=== PATIENT | female | born 1930 | race Caucasian/White ===

== ENCOUNTER 2019-09-14 13:22 | Observation (INO) | payer OTHER ==
--- OUTSIDE RECORDS SUMMARY | 2019-09-14 13:23 | XMS REPORT ---
:1930 [facility] Address [address] [place] [address] [place] [id number] Care Team Providers Name Role Phone Unavailable Unavailable Unavailable Problems This patient has no known problems. Allergies, Adverse Reactions, Alerts This patient has no known allergies or adverse reactions. Medications This patient has no known medications.
--- OUTSIDE RECORDS SUMMARY | 2019-09-14 13:24 | XMS REPORT | Summary of Care ---
:1930 Author Organization [address] [address] Care Team Providers Name Role Phone Wilmer Wilkinson Primary Care Provider Reason for Visit Reason Comments Refill Request Encounter Details Date Type Department Care Team Description 05/30/2019 Refill [facility] Ananth Michel MD Refill Request Neurology-[address] [place] [id number] [address] [place] [address] [phone] Allergies Not on Filedocumented as of this encounter (statuses as of 05/31/2019) Medications Medication Sig Dispensed Refills Start Date End Date Status RIVASTIGMINE TARTRATE TAKE 1 CAPSULE BY 60 capsule 3 03/10/2019 Active 4.5 mg capsule MOUTH EVERY MORNING AND EVENING. RIVASTIGMINE TARTRATE TAKE 1 CAPSULE BY 60 capsule 3 05/31/2019 Active 4.5 mg capsule MOUTH EVERY MORNING AND EVENING. documented as of this encounter (statuses as of 05/31/2019) Active Problems Not on filedocumented as of this encounter (statuses as of 05/31/2019) Social History Tobacco Use Types Packs/Day Years Used Date Former Smoker Smokeless Tobacco: Never Used Alcohol Use Drinks/Week oz/Week Comments No Sex Assigned at Date Recorded Not on file Job Start Date Occupation Industry Not on file Not on file Not on file Travel History Travel Start Travel End No recent travel history available. documented as of this encounter Last Filed Vital Signs Not on filedocumented in this encounter Plan of Treatment Health Maintenance Due Date Last Done Comments DTaP,Tdap,and Td Vaccines (1 - Tdap) 1950 Zoster Recombinant Vaccine (SHINGRIX) (1 of 2) 1981 Medicare Wellness Visit 01/07/1996 Osteoporosis Screening 01/07/1996 PNEUMOCOCCAL VACCINES 65+ (1 of 2 - PCV13) 01/07/1996 INFLUENZA VACCINE (#1) 2019 documented as of this encounter Results Not on filedocumented in this encounter Insurance Payer Benefit Plan Subscriber ID Effective Phone Address Type / Group Dates AETNA - AETNA [id number] 2018-Prese [address] Medicare Adv [place]NA[place]ED [place]ICARE [place] nt [id number] [place] [address] HU[employer] - HUMANA [id number] 2018-Prese Medicare Adv MANAGED MEDICARE ERS nt PPO MEDICARE documented as of this encounter
--- NOTE | 2019-09-14 14:18 | RAD REPORT ---
EXAM DESCRIPTION: CT - Head Brain Wo Cont - 09/14/2019 2:03 pm CLINICAL HISTORY: Changed mental status;Confused Headache, drowsiness COMPARISON: CT HEAD BRAIN WWO CONTRAST dated 04/30/2012 TECHNIQUE: All CT scans are performed using dose optimization technique as appropriate and may inclu de automated exposure control or mA/KV adjustment according to patient size. FINDINGS: No intracranial hemorrhage, hydrocephalus or extra-axial fluid collection.Moderate general ized brain atrophy is present with advanced periventricular and deep white matter chronic microvascul ar ischemic changes.No areas of brain edema or evidence of midline shift. The paranasal sinuses and mastoids are clear. The calvarium is intact. Right vertebral artery is calc ified. IMPRESSION: No acute intracranial abnormality.
--- NOTE | 2019-09-14 14:40 | RAD REPORT ---
EXAM DESCRIPTION: RAD - Chest Single View - 09/14/2019 2:23 pm CLINICAL HISTORY: AMS Chest pain. COMPARISON: CHEST PA AND LAT 2 VIEW dated 09/13/2015; CHEST PA AND LAT 2 VIEW dated 04/29/2012; CHEST PA AND LAT 2 VIEW dated 02/23/2009; CHEST PA AND LAT 2 VIEW dated 11/24/2006 FINDINGS: Portable technique limits examination quality. The lungs are grossly clear. The heart is normal in size. No displaced fractures. IMPRESSION: No acute intrathoracic process suspected.
[2019-09-14 15:21] LABS: Absolute Lymphocytes (CBC) 1.6 K/uL (0.7-4.9); Basophils % 1.1 % (0-1.3); Lymphocytes % 16.6 % (15.3-44.8); RBC Red Blood Cell Count 4.53 M/uL (3.86-4.86)
--- NOTE | 2019-09-14 16:19 | EKG ---
Test Date: 2019-09-14 Test Time: 13:34:21 Banana Room Cutter: KHADAR MEASUREMENT RESULTS: Intervals: Rate: 75 OH: 174 QRSD: 80 QT: 406 QTc: 453 [place]: P: 64 OH: 174 QRS: -15 T: 92 INTERPRETIVE STATEMENTS: Normal sinus rhythm Minimal voltage criteria for LVH, may be normal variant Nonspecific ST and T wave abnormality Abnormal ECG Compared to ECG 07/31/1998 06:07:00 Left ventricular hypertrophy now present ST (T wave) deviation now present T-wave abnormality no longer present Electronically Signed On 09-14-19 16:19:06 INFORMATION SYSTEMS MANAGER by Patel Cox
[2019-09-14 16:23] LABS: Protime INR 1.2
[2019-09-14 18:00] LABS: ALT/SGPT 24 U/L (12-78); AST/SGOT 22 U/L (15-37); Albumin 3.7 g/dL (3.4-5.0); Alkaline Phosphatase 72 U/L (45-117); BUN Blood Urea Nitrogen 21 mg/dL (7-18); Bicarbonate 24 mmol/L (21-32); Bilirubin Direct < 0.1 mg/dL (0-0.2); Bilirubin Total 0.3 mg/dL (0.2-1.0); Glucose Level 105 mg/dL (74-106); Magnesium 1.9 mg/dL (1.8-2.4); NT PRO-BNP 401 pg/mL (<450); Protein, Total 7.4 g/dL (6.4-8.2); Sodium Level 128 mmol/L (136-145); Troponin (Emerg Dept Use Only) < 0.02 ng/mL (0.0-0.045)
[2019-09-14] MEDS ORDERED: NA CHLORIDE 0.9% 500 ML ONE (18:23)
[2019-09-14] MEDS ORDERED: ONDANSETRON 4 MG/2 ML VIAL IV PRN (18:29)
[2019-09-14] MEDS ORDERED: ACETAMINOPHEN 500 MG TAB PO PRN (18:29)
--- NOTE | 2019-09-14 18:29 | EDPHYS ---
Physician Documentation [facility] Name: Alessandra Mendes Age: 89 yrs Sex: Female : 1930 Arrival Date: 09/14/2019 Time: 13:29 Bed 7 Private MD: ED Physician Jonathan Caputo HPI: 09/14 13:58 This 89 yrs old Female presents to ER via EMS with complaints of Altered kdr Mental Status. 13:58 The patient presents with decreased responsiveness. Onset: The symptoms/episode kdr began/occurred suddenly, just prior to arrival. Possible causes: CVA or TIA, low blood sugar, seizure. Associated signs and symptoms: The patient has no apparent associated signs or symptoms. Current symptoms: In the emergency department the patient's symptoms have resolved, the patient is alert and fully oriented, has normal speech, has normal responsiveness, has no confusion. Patient's baseline: Neuro: alert and fully oriented, Motor: no deficits, Ambulation: walks without assistance, Speech: normal for age, The patient has a previous history of HTN. The patient has not experienced similar symptoms in the past. The patient has not recently seen a physician. Historical: - Allergies: 13:34 PENICILLINS; sg - Home Meds: 19:46 Unable to obtain [Active]; lp1 - PMHx: 13:34 Hypertension; sg - PSHx: 13:34 Appendectomy; Tonsillectomy; Tubal ligation; sg - Immunization history:: Adult Immunizations unknown. - Social history:: Smoking status: Patient/guardian denies using tobacco. - Ebola Screening: : Patient negative for fever greater than or equal to 101.5 degrees Fahrenheit, and additional compatible Ebola Virus Disease symptoms Patient denies exposure to infectious person Patient denies travel to an Ebola-affected area in the 21 days before illness onset No symptoms or risks identified at this time. ROS: 13:58 Constitutional: Negative for fever, chills, and weight loss, Eyes: Negative for injury, kdr pain, redness, and discharge, ENT: Negative for injury, pain, and discharge, Neck: Negative for injury, pain, and swelling, Cardiovascular: Negative for chest pain, palpitations, and edema, Respiratory: Negative for shortness of breath, cough, wheezing, and pleuritic chest pain, Abdomen/GI: Negative for abdominal pain, nausea, vomiting, diarrhea, and constipation, Back: Negative for injury and pain, : Negative for injury, bleeding, discharge, and swelling, MS/Extremity: Negative for injury and deformity, Skin: Negative for injury, rash, and discoloration, Psych: Negative for depression, anxiety, suicide ideation, homicidal ideation, and hallucinations, Allergy/Immunology: Negative for hives, rash, and allergies, Endocrine: Negative for neck swelling, polydipsia, polyuria, polyphagia, and marked weight changes, Hematologic/Lymphatic: Negative for swollen nodes, abnormal bleeding, and unusual bruising. 13:58 Neuro: Positive for altered mental status, The patient had a staring episode and then vomited - she does not remember the staring episode but she does remember the vomiting. According to the family present, she has had numerous brief, limited, paroxysmal episodes of single vomiting but never associated with the staring and unrespoiosiveness. She feels at baseline presently.. Exam: 13:58 Constitutional: This is a well developed, well nourished patient who is awake, alert, kdr and in no acute distress. Head/Face: Normocephalic, atraumatic. Eyes: Pupils equal round and reactive to light, extra-ocular motions intact. Lids and lashes normal. Conjunctiva and sclera are non-icteric and not injected. Cornea within normal limits. Periorbital areas with no swelling, redness, or edema. Neck: Trachea midline, no thyromegaly or masses palpated, and no cervical lymphadenopathy. Supple, full range of motion without nuchal rigidity, or vertebral point tenderness. No Meningismus. Chest/axilla: Normal chest wall appearance and motion. Nontender with no deformity. No lesions are appreciated. Cardiovascular: Regular rate and rhythm with a normal S1 and S2. No gallops, murmurs, or rubs. Normal PMI, no JVD. No pulse deficits. Respiratory: Lungs have equal breath sounds bilaterally, clear to auscultation and percussion. No rales, rhonchi or wheezes noted. No increased work of breathing, no retractions or nasal flaring. Abdomen/GI: Soft, non-tender, with normal bowel sounds. No distension or tympany. No guarding or rebound. No evidence of tenderness throughout. Back: No spinal tenderness. No costovertebral tenderness. Full range of motion. Skin: Warm, dry with normal turgor. Normal color with no rashes, no lesions, and no evidence of cellulitis. MS/ Extremity: Pulses equal, no cyanosis. Neurovascular intact. Full, normal range of motion. Neuro: Awake and alert, GCS 15, oriented to person, place, time, and situation. Cranial nerves II-XII grossly intact. Motor strength 5/5 in all extremities. Sensory grossly intact. Cerebellar exam normal. Normal gait. Psych: Awake, alert, with orientation to person, place and time. Behavior, mood, and affect are within normal limits. Vital Signs: 13:32 BP 154 / 68; Pulse 79; Resp 18; Temp 97.6; Pulse Ox 100% on R/A; Weight 74.84 kg; sg 15:58 BP 133 / 82; Pulse 69; Resp 18; Pulse Ox 97% ; sv 16:46 BP 142 / 63; Pulse 67; Resp 17; Pulse Ox 97% ; sv 17:56 BP 137 / 61; Pulse 66; Resp 17; Pulse Ox 96% ; sv 18:50 BP 132 / 60; Pulse 67; Resp 17; Temp 97.6; Pulse Ox 98% on R/A; sg 19:30 BP 136 / 56; Pulse 73; Resp 17; Pulse Ox 97% on R/A; Pain 0/10; lp1 20:28 BP 157 / 63; Pulse 71; Resp 15; Pulse Ox 96% on R/A; lp1 20:42 BP 137 / 58; Pulse 67; Resp 17; Pulse Ox 97% on R/A; Pain 0/10; lp1 NIH Stroke Scale Scores: 13:30 NIHSS Score: 0 sg 16:00 NIHSS Score: 0 kdr MDM: 13:58 Data reviewed: vital signs, nurses notes, lab test result(s), radiologic studies. kdr 18:27 Patient medically screened. kdr 09/14 13:53 Order name: Basic Metabolic Panel; Complete Time: 18:17 kdr 09/14 13:53 Order name: CBC with Diff; Complete Time: 16:34 kdr 09/14 13:53 Order name: LFT's; Complete Time: 18:17 kdr 09/14 13:53 Order name: Magnesium; Complete Time: 18:17 kdr 09/14 13:53 Order name: NT PRO-BNP; Complete Time: 18:17 kdr 09/14 13:53 Order name: PT-INR; Complete Time: 16:34 kdr 09/14 13:53 Order name: CT Head Brain wo Cont; Complete Time: 16:34 kdr 09/14 13:53 Order name: Troponin (emerg Dept Use Only); Complete Time: 18:17 kdr 09/14 13:53 Order name: XRAY Chest (1 view); Complete Time: 16:34 kdr 09/14 14:39 Order name: Glucose, Ancillary Testing; Complete Time: 16:34 EDMS 09/14 18:35 Order name: Basic Metabolic Panel EDMS 09/14 18:35 Order name: Basic Metabolic Panel EDMS 09/14 18:35 Order name: CBC with Automated Diff EDMS 09/14 18:35 Order name: CBC with Automated Diff EDMS 09/14 13:53 Order name: EKG; Complete Time: 13:54 kdr 09/14 13:53 Order name: Cardiac monitoring; Complete Time: 13:57 kdr 09/14 13:53 Order name: EKG - Nurse/Tech; Complete Time: 13:57 kdr 09/14 13:53 Order name: IV Saline Lock; Complete Time: 13:57 kdr 09/14 13:53 Order name: Labs collected and sent; Complete Time: 13:57 kdr 09/14 13:53 Order name: O2 Per Protocol; Complete Time: 13:57 kdr 09/14 13:53 Order name: O2 Sat Monitoring; Complete Time: 13:57 kdr 09/14 14:54 Order name: Labs - recollect needed; Complete Time: 16:15 09/14 16:42 Order name: Labs - recollect needed; Complete Time: 18:02 09/14 18:35 Order name: Regular EDMS Administered Medications: 18:44 Drug: NS 0.9% 1000 ml Route: IV; Rate: 75 ml/hr; Site: left hand; sg 19:47 Follow up: IV Status: Infusion continued upon admission lp1 Disposition: 09/14/19 18:27 Hospitalization ordered by Wilmer Wilkinson for Observation. Preliminary diagnosis are Syncope and collapse, Vomiting, Hypo-osmolality and hyponatremia. - Bed requested for Telemetry/MedSurg (observation). - Status is Observation. lp1 - Condition is Fair. - Problem is new. - Symptoms are resolved. UTI on Admission? No NIH Stroke Scale - NIH Stroke Score Date: 09/14/2019 Time: 13:30 Total Score = 0 1a. Level of Consciousness (LOC) - 0(Alert) 1b. Level of Consciousness (LOC) (Year \T\ Age) - 0(Both) 1c. LOC Commands (Open \T\ Closes Eyes/Industrial Maintenance Manager) - 0(Both) 2. Best Gaze (Lateral Gaze Paresis) - 0(Normal) 3. Visual Field Loss - 0(No visual loss) 4. Facial Palsy - 0(Normal) 5a. Left Arm: Motor (10-second hold) - 0(No drift) 5b. Right Arm: Motor (10-second hold) - 0(No drift) 6a. Left Leg: Motor (5-second hold - always test supine) - 0(No drift) 6b. Right Leg: Motor (5-second hold - always test supine) - 0(No drift) 7. Limb Ataxia (finger/nose \T\ heel/bravo - test with eyes open) - 0(Absent) 8. Sensory Loss (pinprick arms/legs/face) - 0(Normal) 9. Best Language: Aphasia (description/naming/reading) - 0(No aphasia) 10. Dysarthria (speech clarity - read or repeat words) - 0(Normal) 11. Extinction and Inattention (visual/tactile/auditory/spatial/personal) - 0(No abnormality) Initials: NIH Stroke Scale - NIH Stroke Score Date: 09/14/2019 Time: 16:00 Total Score = 0 1a. Level of Consciousness (LOC) - 0(Alert) 1b. Level of Consciousness (LOC) (Year \T\ Age) - 0(Both) 1c. LOC Commands (Open \T\ Closes Eyes/Industrial Maintenance Manager) - 0(Both) 2. Best Gaze (Lateral Gaze Paresis) - 0(Normal) 3. Visual Field Loss - 0(No visual loss) 4. Facial Palsy - 0(Normal) 5a. Left Arm: Motor (10-second hold) - 0(No drift) 5b. Right Arm: Motor (10-second hold) - 0(No drift) 6a. Left Leg: Motor (5-second hold - always test supine) - 0(No drift) 6b. Right Leg: Motor (5-second hold - always test supine) - 0(No drift) 7. Limb Ataxia (finger/nose \T\ heel/bravo - test with eyes open) - 0(Absent) 8. Sensory Loss (pinprick arms/legs/face) - 0(Normal) 9. Best Language: Aphasia (description/naming/reading) - 0(No aphasia) 10. Dysarthria (speech clarity - read or repeat words) - 0(Normal) 11. Extinction and Inattention (visual/tactile/auditory/spatial/personal) - 0(No abnormality) Initials: kdr Signatures: Dispatcher [employer] EDMS Nell Hernandez Steven, RN RN sg Jonathan Caputo MD MD [facility] Monica Gupta RN RN lp1 Ana Luisa Woodard ar5 Corrections: (The following items were deleted from the chart) 20:21 18:27 Hospitalization Ordered by Wilmer Wilkinson MD for Observation. Preliminary ar5 diagnosis is Syncope and collapse; Vomiting; Hypo-osmolality and hyponatremia. Bed requested for Telemetry/MedSurg (observation). Status is Observation. Condition is Fair. Problem is new. Symptoms are resolved. UTI on Admission? No. kdr 21:04 20:21 09/14/2019 18:27 Hospitalization Ordered by Wilmer Wilkinson MD for lp1 Observation. Preliminary diagnosis is Syncope and collapse; Vomiting; Hypo-osmolality and hyponatremia. Bed requested for Telemetry/MedSurg (observation). Status is Observation. Condition is Fair. Problem is new. Symptoms are resolved. UTI on Admission? No. ar5
--- NOTE | 2019-09-14 18:29 | ER ---
Nurse's Notes [facility] Name: Alessandra Mendes Age: 89 yrs Sex: Female : 1930 Arrival Date: 09/14/2019 Time: 13:29 Bed 7 Private MD: Diagnosis: Syncope and collapse;Vomiting;Hypo-osmolality and hyponatremia Presentation: 09/14 13:29 Presenting complaint: EMS states: pt was at hair appointment when she had an episode of sg unresponsiveness with eyes open lasting approximately 1-2 mins, pt had incontinence of urine per EMS, FSBG "normal", vital signs "normal" per [facility], staff at [facility] report episode of vomiting x1 once the pt returned to baseline onset 1 hr [employer]. Transition of care: patient was not received from another setting of care. Onset of symptoms was September 14, 2019. Risk Assessment: Do you want to hurt yourself or someone else? Patient reports no desire to harm self or others. Initial Sepsis Screen: Does the patient meet any 2 criteria? No. Patient's initial sepsis screen is negative. Does the patient have a suspected source of infection? No. Patient's initial sepsis screen is negative. Care prior to arrival: missed IV attempts x2. 13:29 Method Of Arrival: EMS: [facility] 13:29 Acuity: GLEN 2 sg 13:35 Note notified of EMS report, pt is now at a baseline level per deputy court at sg bedside, a code stroke has not been activated at this time. Historical: - Allergies: 13:34 PENICILLINS; sg - Home Meds: 19:46 Unable to obtain [Active]; lp1 - PMHx: 13:34 Hypertension; sg - PSHx: 13:34 Appendectomy; Tonsillectomy; Tubal ligation; sg - Immunization history:: Adult Immunizations unknown. - Social history:: Smoking status: Patient/guardian denies using tobacco. - Ebola Screening: : Patient negative for fever greater than or equal to 101.5 degrees Fahrenheit, and additional compatible Ebola Virus Disease symptoms Patient denies exposure to infectious person Patient denies travel to an Ebola-affected area in the 21 days before illness onset No symptoms or risks identified at this time. Screenin:30 Abuse screen: Denies threats or abuse. Denies injuries from another. Nutritional sg screening: No deficits noted. Tuberculosis screening: No symptoms or risk factors identified. Never had TB. VAN Screening: Arm Drift: Patient shows no arm weakness. Patient is VAN negative. Visual Disturbance: No visual disturbance noted. Aphasia: No aphasia noted. Neglect: No neglect noted. The patient has not been NPO before screening. The patient is alert, able to follow commands. The patient does not exhibit slurred or garbled speech The patient is not exhibiting difficulty speaking. The patient does not exhibit difficulty understanding words. The patient is able to swallow own secretions with no drooling or need for suction. Patient tolerated one teaspoon of water. No drooling, immediate coughing, gurgling, or clearing of the throat was noted. The patient tolerated 90mL of water. No drooling, immediate coughing, gurgling, or clearing of the throat was noted. The patient passed the bedside swallow screening. Oral medications may be given as ordered. Contact Physician for further diet orders. Fall Risk None identified. Assessment: 13:29 General: Appears in no apparent distress. well groomed, well developed, well nourished, sg Behavior is calm, cooperative, appropriate for age. Neuro: Level of Consciousness is awake, alert, obeys commands, Oriented to person, place, time, situation, [place] are equal bilaterally Moves all extremities. Speech is normal, Facial symmetry appears normal, Pupils are constricted. Cardiovascular: Heart tones S1 S2 present Capillary refill is brisk in bilateral fingers Patient's skin is warm and dry. Chest pain is denied. Respiratory: Airway is patent Respiratory effort is even, unlabored, Respiratory pattern is regular, symmetrical, Denies cough, shortness of breath labored breathing. GI: Abdomen is flat, non-distended. : No signs and/or symptoms were reported regarding the genitourinary system. EENT: No signs and/or symptoms were reported regarding the EENT system. Derm: Skin is pink, warm \\T\\ dry. Musculoskeletal: Circulation, motion, and sensation intact. Range of motion: intact in all extremities. 13:42 Reassessment: Patient appears in no apparent distress at this time. at bedside evaluating pt at this time. 14:12 Reassessment: pt returned from CT at this time. 14:16 Reassessment: xray at bedside at this time. sg 15:45 Reassessment: Patient appears in no apparent distress at this time. Patient and/or sg family updated on plan of care and expected duration. Pain level reassessed. Patient is alert, oriented x 3, equal unlabored respirations, skin warm/dry/pink. Patient denies pain at this time. Patient states feeling better. 17:00 Reassessment: Patient appears in no apparent distress at this time. Patient and/or sg family updated on plan of care and expected duration. Pain level reassessed. pt transport Kenji reports needing to leave to go to home [phone]. 18:50 Reassessment: Kenji contacted, updated on the POC and the need for admission, pt family sg stated understanding. 19:15 Reassessment: Patient appears in no apparent distress at this time. Neuro: Level of lp1 Consciousness is awake, alert, obeys commands, Oriented to person, place. Cardiovascular: Patient's skin is warm and dry. Respiratory: Respiratory effort is even, unlabored. GI: No signs and/or symptoms were reported involving the gastrointestinal system. : No signs and/or symptoms were reported regarding the genitourinary system. EENT: No signs and/or symptoms were reported regarding the EENT system. Derm: Skin is pink, warm \\T\\ dry. Musculoskeletal: No deficits noted. 19:46 Reassessment: Patient given sandwich and water at this time; Aware of waiting for room lp1 assignment. 19:46 Pain: Denies pain. lp1 20:42 Reassessment: Patient appears in no apparent distress at this time. No changes from lp1 previously documented assessment. Vital Signs: 13:32 BP 154 / 68; Pulse 79; Resp 18; Temp 97.6; Pulse Ox 100% on R/A; Weight 74.84 kg; sg 15:58 BP 133 / 82; Pulse 69; Resp 18; Pulse Ox 97% ; sv 16:46 BP 142 / 63; Pulse 67; Resp 17; Pulse Ox 97% ; sv 17:56 BP 137 / 61; Pulse 66; Resp 17; Pulse Ox 96% ; sv 18:50 BP 132 / 60; Pulse 67; Resp 17; Temp 97.6; Pulse Ox 98% on R/A; sg 19:30 BP 136 / 56; Pulse 73; Resp 17; Pulse Ox 97% on R/A; Pain 0/10; lp1 20:28 BP 157 / 63; Pulse 71; Resp 15; Pulse Ox 96% on R/A; lp1 20:42 BP 137 / 58; Pulse 67; Resp 17; Pulse Ox 97% on R/A; Pain 0/10; lp1 NIH Stroke Scale Scores: 13:30 NIHSS Score: 0 sg 16:00 NIHSS Score: 0 kdr ED Course: 13:29 Patient arrived in ED. sg 13:32 Triage completed. sg 13:32 Arm band placed on. sg 13:35 Berto Benoit, RN is Primary Nurse. sg 13:40 Patient has correct armband on for positive identification. Placed in gown. Bed in low sg position. Side rails up X2. Pulse ox on. NIBP on. Warm blanket given. Head of bed elevated. 13:41 EKG done, by extractions technician. reviewed by Jonathan Caputo MD. at1 13:42 Jonathan Caputo MD is Attending Physician. kdr 13:45 Initial lab(s) drawn, by me, sent to lab. Missed attempt(s): 22 gauge in right forearm. sg Bleeding controlled, band aid applied, catheter tip intact. 14:04 CT Head Brain wo Cont In Process Unspecified. EDMS 14:15 No apparent distress. sg 14:20 Lab(s) recollected, by ED staff, sent to lab. sg 14:23 XRAY Chest (1 view) In Process Unspecified. EDMS 18:26 Wilmer Wilkinson MD is Hospitalizing Provider. kdr 18:40 Inserted saline lock: 22 gauge in left hand, using aseptic technique. Blood collected. sg 19:11 No provider procedures requiring assistance completed. Patient admitted, IV remains in lp1 place. Administered Medications: 18:44 Drug: NS 0.9% 1000 ml Route: IV; Rate: 75 ml/hr; Site: left hand; sg 19:47 Follow up: IV Status: Infusion continued upon admission lp1 Outcome: 18:27 Decision to Hospitalize by Provider. kdr 19:11 Condition: stable lp1 19:11 Instructed on the need for admit. 20:43 Admitted to Tele accompanied by tech, room 412, with chart, Report called to lp1 MARICRUZ Goldman 21:04 Patient left the ED. lp1 NIH Stroke Scale - NIH Stroke Score Date: 09/14/2019 Time: 13:30 Total Score = 0 1a. Level of Consciousness (LOC) - 0(Alert) 1b. Level of Consciousness (LOC) (Year \\T\\ Age) - 0(Both) 1c. LOC Commands (Open \\T\\ Closes Eyes/Physician Assistant Primary Care) - 0(Both) 2. Best Gaze (Lateral Gaze Paresis) - 0(Normal) 3. Visual Field Loss - 0(No visual loss) 4. Facial Palsy - 0(Normal) 5a. Left Arm: Motor (10-second hold) - 0(No drift) 5b. Right Arm: Motor (10-second hold) - 0(No drift) 6a. Left Leg: Motor (5-second hold - always test supine) - 0(No drift) 6b. Right Leg: Motor (5-second hold - always test supine) - 0(No drift) 7. Limb Ataxia (finger/nose \\T\\ heel/bravo - test with eyes open) - 0(Absent) 8. Sensory Loss (pinprick arms/legs/face) - 0(Normal) 9. Best Language: Aphasia (description/naming/reading) - 0(No aphasia) 10. Dysarthria (speech clarity - read or repeat words) - 0(Normal) 11. Extinction and Inattention (visual/tactile/auditory/spatial/personal) - 0(No abnormality) Initials: NIH Stroke Scale - NIH Stroke Score Date: 09/14/2019 Time: 16:00 Total Score = 0 1a. Level of Consciousness (LOC) - 0(Alert) 1b. Level of Consciousness (LOC) (Year \\T\\ Age) - 0(Both) 1c. LOC Commands (Open \\T\\ Closes Eyes/Physician Assistant Primary Care) - 0(Both) 2. Best Gaze (Lateral Gaze Paresis) - 0(Normal) 3. Visual Field Loss - 0(No visual loss) 4. Facial Palsy - 0(Normal) 5a. Left Arm: Motor (10-second hold) - 0(No drift) 5b. Right Arm: Motor (10-second hold) - 0(No drift) 6a. Left Leg: Motor (5-second hold - always test supine) - 0(No drift) 6b. Right Leg: Motor (5-second hold - always test supine) - 0(No drift) 7. Limb Ataxia (finger/nose \\T\\ heel/bravo - test with eyes open) - 0(Absent) 8. Sensory Loss (pinprick arms/legs/face) - 0(Normal) 9. Best Language: Aphasia (description/naming/reading) - 0(No aphasia) 10. Dysarthria (speech clarity - read or repeat words) - 0(Normal) 11. Extinction and Inattention (visual/tactile/auditory/spatial/personal) - 0(No abnormality) Initials: kdr Signatures: Dispatcher [employer] Mena Laura RN RN Berto Benoit RN RN sg Jonathan Caputo MD MD kdr Monica Gupta RN RN lp1 Elizabeth Dorado, scientist electronics EKG Tat1 Corrections: (The following items were deleted from the chart) 13:37 13:29 Presenting complaint: EMS states: pt was at hair appointment when she had sg an episode of unresponsiveness with eyes open lasting approximately 1-2 mins, pt had incontinence of urine per EMS, FSBG "normal", vital signs "normal" per [facility] sg 13:49 13:29 Presenting complaint: EMS states: pt was at hair appointment when she had sg an episode of unresponsiveness with eyes open lasting approximately 1-2 mins, pt had incontinence of urine per EMS, FSBG "normal", vital signs "normal" per [facility] onset 1 hr [employer]EE [employer] sg
[2019-09-14] MEDS: NA CHLORIDE 0.9% 1,000 ML IV SCH (19:00)
[2019-09-14 21:52] VITALS: BMI 25.2
[2019-09-15] MEDS: NA CHLORIDE 0.9% 1,000 ML IV SCH (02:02)
[2019-09-15 02:42] LABS: Urine Appearance CLEAR; Urine Bilirubin NEGATIVE (NEG); Urine Blood NEGATIVE (NEG); Urine Color YELLOW; Urine Glucose NEGATIVE (NEG); Urine Protein NEGATIVE (NEG); Urine Urobilinogen 0.2 mg/dL (0.2-1.0)
[2019-09-15 03:23] LABS: Urine Bacteria <20 /HPF (<20); Urine Culture Reflex Order REFLEXED; Urine Mucus 1+ /HPF (NONE SEEN); Urine RBC <5 /HPF (NONE SEEN)
[2019-09-15 04:40] LABS: Potassium 4.7 mmol/L (3.5-5.1)
[2019-09-15 05:57] LABS: Absolute Lymphocytes (CBC) 2.3 K/uL (0.7-4.9); Hematocrit 32.8 % (36.0-45.0); Lymphocytes % 20.6 % (15.3-44.8); MPV 8.1 fL (7.6-11.3); RBC Red Blood Cell Count 3.92 M/uL (3.86-4.86)
[2019-09-15] MEDS ORDERED: PNEUMOCOCCAL VACCINE 0.5 ML IMVAC ONE (08:00)
[2019-09-15] MEDS ORDERED: INFLUENZA VACCINE (for 3y+) 0.5 ML DOSE IMVAC ONE (08:00)
[2019-09-15 08:42] VITALS: O2SAT 97
[2019-09-15 12:04] VITALS: BP 132/60; TEMP 98.5
--- NOTE | 2019-09-15 12:23 | RAD REPORT ---
EXAM DESCRIPTION: MRI - Brain W/Wo Cont - 09/15/2019 12:06 pm CLINICAL HISTORY: CVA COMPARISON: September 14, [address] TECHNIQUE: Axial, sagittal, and coronal magnetic images of the brain were obtained. 20 cc MultiHance administered intravenously FINDINGS: Moderate to marked signal within periventricular, deep and subcortical white matter probab ly ischemic changes secondary to small vessel disease The ventricles are normal in caliber. Diffusion-weighted/ ADC mapping sequences do not demonstrate evidence of an acute infarction. No abnormal enhancement within the brain is seen. An extra-axial fluid collection is not noted. Fluid is present within sphenoid sinus. Mild signal right mastoids IMPRESSION: Moderate to marked signal within periventricular, deep and subcortical white matter prob ably ischemic changes secondary to small vessel disease Fluid within the sphenoid sinus may indicate acute sinusitis
--- NOTE | 2019-09-15 12:25 | RAD REPORT ---
EXAM DESCRIPTION: MRI - MRA Head Wo Cont - 09/15/2019 12:07 pm CLINICAL HISTORY: CVA COMPARISON: None. TECHNIQUE: Magnetic resonance angiogram was performed. 3D MIPS reconstruction performed FINDINGS: The anterior cerebral, middle cerebral, posterior cerebral, distal internal carotid and ba silar arteries do not demonstrate a significant stenosis. An aneurysm is not displayed. IMPRESSION: Unremarkable MRA brain.
--- NOTE | 2019-09-15 12:26 | RAD REPORT ---
EXAM DESCRIPTION: MRI - MRA Neck W/Wo Cont - 09/15/2019 12:06 pm CLINICAL HISTORY: CVA COMPARISON: None. TECHNIQUE: Magnetic resonance angiogram of the neck was performed. Twenty cc MultiHance was administ ered intravenously. 3D MIPS reconstruction performed FINDINGS: Mild plaque within the common, internal and external carotid arteries. Significant stenosis is not noted. The vertebral arteries are codominant without visualization of an abnormality. IMPRESSION: Mild plaque carotid arteries NASCET criteria used. Mild 0-49% stenosis Moderate 50-69% stenosis Severe 70-99% stenosis
[2019-09-15 13:21] LABS: Platelet Estimate ADEQ
--- NOTE | 2019-09-15 20:32 | CON ---
Reason For Consultation: Consultation called because of syncope. History Of Present Illness: Ms. Mendes is an 89-year-old patient with hypertension, who was at the [employer] when she suddenly passed out without warning. She denied, at least she was told she did not shake all over. She denied tongue biting or loss of bowel or bladder control. She believes it is less than a minute of being unresponsive and she returned to her self. She was slightly disorient ed but did not have ej confusion. At [facility], her head CT scan showed no acute intrac ranial abnormalities. 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 Her subsequent brain MRI confirmed significant small-vessel ischemic disease and is noted as moderate to marked. Her neck and brain magnetic resona nce angiogram did not show any significant stenosis. There was mild plaque in the carotid arteries. She did receive IV fluids, especially as her blood work revealed mild hyponatremia of 128. The violetta ent denies any additional episodes since hospitalization. Her liver function studies are unremarkabl e. Her hemoglobin was normal on admission, today 11.2, hematocrit and MCV are normal. Platelet coun t is normal. Urinalysis showed a trace of esterase, 5-10 white blood cells, and 5-10 epithelial cell s, otherwise unremarkable. Allergies: PENICILLIN. Past Medical History: Hypertension. Surgical History: Appendectomy, tonsillectomy, tubal ligation. Current Medications: She is on Lovenox for DVT prophylaxis 30 mg subcutaneously daily, Zofran 4 mg I V as needed. She did receive some Tylenol and IV fluids. Family History: Noncontributory. Social History: No alcohol, tobacco, or IV drug use. Review of Systems: She denies any recent fevers or chills, nausea, vomiting, myalgias, arthralgias, rash, headache, weig ht change, psychiatric complaints, gastrointestinal or genitourinary complaints. Physical Examination: Vital Signs: Blood pressure 132/60, pulse 67, respiratory rate 16, temperature 98.5, oxygen saturati on 96% to 97% on room air. General: Ms. Mendes is resting in bed. She finished lunch. She is in no acute distress. HEENT: She is normocephalic, atraumatic. Sclerae are anicteric. Oropharynx pink and moist. Neck: Supple. Chest: Clear. Heart: Regular. Extremities: No edema, cyanosis, or clubbing. Neurological: She is alert and oriented to situation, place, and person. She does follow commands a ppropriately. No obvious expressive or receptive aphasias. Cranial nerves 2 through 12 show no foca l deficits. Motor examination upper and lower extremities show no focal deficits. Her sensory exam is intact in the upper and lower extremities with stocking-glove loss. Reflexes are symmetric. Coor dination is intact in the upper and lower extremities. Her gait shows good stance and stride. Assessment: Ms. Mendes is an 89-year-old patient with syncopal episode of unclear etiology. Perha ps there is mild dehydration. No evidence of ej seizure and her brain MRI has ruled out a stroke. She, however, has advanced small-vessel ischemic disease and likely will have a mild cognitive impa irment secondary to that. She may need further workup as an outpatient for cognitive loss. She may have an EEG outpatient and blood work for the mentioned labs. At this point, she may be discharged h [facility] and encouraged to have 8-10 glasses of water daily. Also, should have a followup basic metabolic panel to look at the sodium level within a week of discharge. She follows up with primary care phys cande, Dr. Wilkinson. She may require an ambulatory EEG monitoring study if she continues to have syncop al episodes that are not characterized. Otherwise, the patient may be discharged and follow up with Dr. Barth in 1 month. VLADISLAV/BARRIE Voice ID: [id number] Report ID: [id number]
[2019-09-16] MEDS ORDERED: ENOXAPARIN 30 MG/0.3 ML SQ SCH (09:00)
--- NOTE | 2019-10-05 13:08 | P.HP ---
Certification for Inpatient Patient admitted to: Observation With expected LOS: <2 Midnights Practitioner: I am a practitioner with admitting privileges, knowledge of patient current condition, hospital course, and medical plan of care. Services: Services provided to patient in accordance with Admission requirements found in Title 42 Section 412.3 of the Code of Federal Regulations Patient History Date of Service: 09/15/19 Reason for admission: SYNCOPE History of Present Illness: MS. PIZANO HAD EPISODE OF TRANSIENT UNCONSCIOUSNESS. SHE HAS SEVERE DEMENTIA AND LIVES ALONE WITH CARETAKERS ROUND THE CLOCK. SHE IS NOT ABLE TO GIVE MUCH HISTORY. SHE HAS NO HEADACHES. SHE IS BACK TO HER BASELINE. SHE HAS HAD EPISODE LIKE THIS BEFORE AND IS ON KEPPRA FOR IT. Allergies lincomycin HCl [From Lincocin] Allergy (Severe, Verified 11/19/16 22:35) Itching Zmwlgzt-Wcw-Fgh Reductase Inhibitor Allergy (Intermediate, Verified 11/19/16 22: 35) Abdominal cramps vancomycin Allergy (Intermediate, Verified 11/19/16 22:35) Itching/Hives/Rash Penicillins Allergy (Unknown, Verified 09/14/19 21:53) Unknown azithromycin [From Zithromax] Allergy (Verified 11/21/16 07:43) UNK pentazocine [From Talwin] Allergy (Verified 11/21/16 07:43) UNK multiple Meds Allergy (Uncoded 05/22/15 09:26) Hives Home Medications: Rivaroxaban [Xarelto] 15 mg PO DAILY 04/30/12 Olmesartan Medoxomil [Benicar] 40 mg PO DAILY 05/22/15 Doxazosin [Cardura*] 2 mg PO DAILY 11/20/16 Levothyroxine [Synthroid*] 100 mcg PO [id number] 11/20/16 Rivastigmine Tartrate [Rivastigmine] 4.5 mg PO BID 11/20/16 Cefuroxime [Ceftin] 250 mg PO BID #14 tab 09/15/19 Icosapent Ethyl [Vascepa 1 gm Cap] 2 cap PO BID 09/15/19 Pantoprazole [Protonix Tab*] 1 tab PO DAILY 09/15/19 Spironolactone [Aldactone*] 1 tab PO DAILY 09/15/19 levETIRAcetam [Keppra Tab] 500 mg PO BID #60 tab 09/15/19 - Past Medical/Surgical History Has patient received pneumonia vaccine in the past: No Diabetic: No -: 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 MEMORY RETENTION OF 0 MINUTES.) HEENT: Atraumatic, PERRLA, Mucous membr. moist/pink, EOMI, Sclerae nonicteric Neck: Supple, 2+ carotid pulse no bruit, No LAD, Without JVD or thyroid abnormality Respiratory: Clear to auscultation bilaterally, Normal air movement Cardiovascular: Regular rate/rhythm, Normal S1 S2 Gastrointestinal: Normal bowel sounds, No tenderness Musculoskeletal: No tenderness Integumentary: No rashes Neurological: Normal gait, Normal speech, Normal strength at 5/5 x4 extr, Normal tone, Normal affect Lymphatics: No axilla or inguinal lymphadenopathy Assessment and Plan - Problems (Diagnosis) (1) Atypical seizure Status: Acute Plan: DR. MASON HAS SEEN THE PATIENT. WE WILL WATCH FURTHER. IT IS NOT UNUSUAL FOR DEMENTIA PATIENTS TO HAVE ATYPICAL EVENT LIKE THIS. SHE IS AT A STAGE WHERE ONLY COMFORT CARE IS ADVISED. SON IS CALLED AND HE UNDERSTANDS. (2) HTN (hypertension) Status: Chronic Qualifiers: Hypertension type: essential hypertension Qualified Code(s): I10 - Essential (primary) hypertension (3) A-fib Status: Acute Plan: NO CHANGES MED CONTROL. XARELTO FOR STROKE PREVENTION. Qualifiers: Atrial fibrillation type: longstanding persistent Qualified Code(s): I48.11 - Longstanding persistent atrial fibrillation (4) Alzheimer disease Status: Acute - Advance Directives Does patient have a Living Will: Yes Does patient have a Durable POA for Healthcare: Yes
== END 2019-09-15 15:45 | disposition home or self-care (01) ==
LOC: ER 13:22 → 4TH 20:15
PROVIDERS: ADMIT Internal Medicine; ATTEND Internal Medicine
DX: R56.9 Unspecified convulsions (principal); G30.9 Alzheimer's disease, unspecified; F02.80 Dementia in other diseases classified elsewhere, unspecified severity, without behavioral disturbance, psychotic disturbance, mood disturbance, and anxiety; I48.91 Unspecified atrial fibrillation; I10 Essential (primary) hypertension; Z88.0 Allergy status to penicillin
CPT/HCPCS: 93005; 87088; 85025 ×2; 81001; 87086; 80048 ×2; 36415; 83735; 85049; 85610; 82947; 80076; 87077; 87186; 84484; 83880; 70450; 71045; 90471 ×2; 70553; 70544; 70549; 90670; 96360; 99285; A9577; Q2035; J7040; J7030 ×2; G0378 ×3

== ENCOUNTER 2020-03-20 19:51 | Emergency (ER) | payer OTHER ==
[2020-03-20] MEDS ORDERED: CEFAZOLIN SODIUM 1 GM/VIAL ONE (21:01)
[2020-03-20] MEDS ORDERED: NA CHLORIDE 0.9% 500 ML ONE (21:01)
[2020-03-20 21:17] LABS: Absolute Lymphocytes (CBC) 1.8 K/uL (0.7-4.9); Basophils % 0.7 % (0-1.3); Hematocrit 41.4 % (36.0-45.0); Lymphocytes % 17.3 % (15.3-44.8); MPV 7.7 fL (7.6-11.3); RBC Red Blood Cell Count 4.86 M/uL (3.86-4.86)
[2020-03-20 21:29] LABS: Albumin 3.7 g/dL (3.4-5.0); Bilirubin Total 0.4 mg/dL (0.2-1.0); Potassium 4.2 mmol/L (3.5-5.1); Protein, Total 7.9 g/dL (6.4-8.2)
--- OUTSIDE RECORDS SUMMARY | 2020-03-20 22:59 | XMS REPORT | Summary of Care ---
:1930 Author Organization [facility] Address [address] [place] [id number] Care Team Providers Name Role Phone Wilmer Wilkinson Primary Care Provider Reason for Visit Reason Comments Refill Request Appointment Encounter Details Date Type Department Care Team Description 01/26/[address] [facility] Ananth Michel, Refill Request; Neurology-Carine UGALDE Appointment [address] [place], [place] [address]. [facility], [address] [place] [id number] Allergies Not on Filedocumented as of this encounter (statuses as of 01/26/2020) Medications Medication Sig Dispensed Refills Start Date End Date Status rivastigmine Take 1 60 capsule 3 01/26/2020 Activ e tartrate 4.5 mg capsule by capsuleIndications mouth every : Late onset morning and Alzheimer's evening. disease without behavioral disturbance rivastigmine Take 1 60 capsule 3 09/22/2019 Disco ntinued tartrate 4.5 mg capsule by 0 (Re order) capsuleIndications mouth every : Late onset morning and Alzheimer's evening. disease without behavioral disturbance documented as of this encounter (statuses as of 01/26/2020) Active Problems Not on filedocumented as of this encounter (statuses as of 01/26/2020) Social History Tobacco Use Types Packs/Day Years [...] filedocumented in this encounter Plan of Treatment Date Type Specialty Care Team Description 01/30/2020 Office Visit Neurology Ananth Michel MD [address] [place], [place] [address]. 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
--- OUTSIDE RECORDS SUMMARY | 2020-03-20 22:59 | XMS REPORT | Continuity of Care Document ---
:1930 Author Organization [facility] t Address [address] [place] [address] Dr. Cunningham. [address] [place] [address] Care Team Providers Name Role Phone Jorge Alberto Michel MD Attending Clinician Problems This patient has no known problems. Allergies, Adverse Reactions, Alerts This patient has no known allergies or adverse reactions. Medications This patient has no known medications. Procedures This patient has no known procedures. Encounters Start End Encounter Admission Attending Care Care Encounter Source Date/Time Date/Time Type Type Clinicians Facility Department ID 2020-01-28 2020-01-28 Refill Anand [facility] [id number] 00:00:00 00:00:00 Ananth Hawk [id number] [place] [id number] Professio [phone] [facility] 2020-01-26 2020-01-26 Telephone AUDREY Michel [id number] 00:00:00 00:00:00 Ananth Hawk [id number] [place] [id number] Professio [phone] [facility] 2019-05-30 2019-05-30 Refill Anand PRPAMELA [id number] 00:00:00 00:00:00 Ananth Hawk [id number] [place] [id number] Professio [phone] [address] Results This patient has no known results.
--- OUTSIDE RECORDS SUMMARY | 2020-03-20 22:59 | XMS REPORT | Summary of Care ---
:1930 Author Organization [facility] Address [address] [place] [id number] Care Team Providers Name Role Phone Wilmer Wilkinson Primary Care Provider Reason for Visit Reason Comments Refill Request Encounter Details Date Type Department Care Team Description 01/28/2020 Refill [facility] Ananth Michel MD Refill Request Neurology-[address] [place] [id number] [address] [place] [address] [phone] Allergies Not on Filedocumented as of this encounter (statuses as of 01/30/2020) Medications Medication Sig Dispensed Refills Start Date End Date Status rivastigmine tartrate Take 1 capsule by 60 capsule 3 0 Active 4.5 mg mouth every capsuleIndications: morning and Late onset Alzheimer's evening. disease without behavioral disturbance documented as of this encounter (statuses as of 01/30/2020) Active Problems Not on filedocumented as of this encounter (statuses as of 01/30/2020) Social History Tobacco Use Types Packs/Day Years [...] Treatment Date Type Specialty Care Team Description 01/31/2020 Telemedicine Visit Neurology Summer Michel rd, MD [address] [place] [address]. 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
--- NOTE | 2020-03-21 08:37 | RAD REPORT ---
EXAM DESCRIPTION: RAD - Chest Single View - 03/20/2020 11:53 pm CLINICAL HISTORY: FALL, CONFUSION Chest pain. COMPARISON: Chest Single View dated 09/14/2019; CHEST PA AND LAT 2 VIEW dated 09/13/2015; CHEST PA A ND LAT 2 VIEW dated 04/29/2012; CHEST PA AND LAT 2 VIEW dated 02/23/2009 FINDINGS: Portable technique limits examination quality. The lungs are grossly clear. The heart is normal in size. Prominent tortuous thoracic aorta. IMPRESSION: No acute intrathoracic process suspected.
--- NOTE | 2020-03-21 10:29 | ER ---
Nurse's Notes [facility] Name: Alessandra Mendes Age: 89 yrs Sex: Female : 1930 Arrival Date: 03/20/2020 Time: 19:59 Bed 13 Private MD: Diagnosis: Laceration without foreign body of other part of head-nose;Superficial injury of head;Contusion of other part of head-face;Hypo-osmolality and hyponatremia Presentation: 03/20 20:14 Chief complaint: EMS states: "The pt had a witnessed fall in her driveway. she was jd3 attempting to take out the trash when a neighbor saw her trip and fall. she hit her head and has a small laceration to her nose. she has a history of Alzheimer so she has some confusion, but she is at baseline per her neighbor.". Care prior to arrival: None. Mechanism of Injury: Fall from standing position. Trauma event details: Injury occurred in the [facility], Injury occurred: at home. Injury occurred: March 20, 2020. 20:14 Acuity: GLEN 2 jd3 20:14 Method Of Arrival: EMS: [facility] jd3 20:28 Coronavirus screen: Proceed with normal triage. Ebola Screen: Patient negative for jd3 fever greater than or equal to 101.5 degrees Fahrenheit, and additional compatible Ebola Virus Disease symptoms. Initial Sepsis Screen: Does the patient meet any 2 criteria? No. Patient's initial sepsis screen is negative. Does the patient have a suspected source of infection? No. Patient's initial sepsis screen is negative. Risk Assessment: Do you want to hurt yourself or someone else? Patient reports no desire to harm self or others. Onset of symptoms was March 20, 2020. Trauma Activation: Alert Physician: ED Physician; Name: Dr. Salinas; Notified At: 20:06; Arrived At: 20:06 Physician: General Surgeon; Name: ; Notified At: 20:06; Arrived At: Physician: Radiology; Name: Raman Ferrell; Notified At: 20:06; Arrived At: Physician: Respiratory; Name: ; Notified At: 20:06; Arrived At: Physician: Lab; Name: ; Notified At: 20:06; Arrived At: Historical: - Allergies: 20:13 PENICILLINS; jd3 - Home Meds: 20:13 hypertension medication [Active]; jd3 - PMHx: 20:13 Hypertension; Alzheimers; jd3 - PSHx: 20:13 Tubal ligation; Tonsillectomy; Appendectomy; jd3 - Immunization history:: Adult Immunizations unknown, Last tetanus immunization: unknown. - Social history:: Smoking status: Patient denies any tobacco usage or history of. - Family history:: not pertinent. Screenin:27 Abuse screen: Denies threats or abuse. Tuberculosis screening: No symptoms or risk jd3 factors identified. 20:28 Nutritional screening: No deficits noted. Fall Risk Fall in past 12 months (25 points). jd3 Ambulatory Aid- None/Bed Rest/Nurse Assist (0 pts). Gait- Weak (10 pts.). Mental Status- Overestimates/Forgets Limitations (15 pts.). Total Hoff Fall Scale indicates High Risk Score (45 or more points). Fall prevention measures have been instituted. Side Rails Up X 2 Placed Close to Nursing Station Frequent Obs/Assessments Occuring Family Present and informed to notify staff if the need to leave the bedside. Primary Survey: 20:25 NO uncontrolled hemorrhage observed. A: The patient is alert. Airway: patent, No jd3 supplemental oxygen in use on arrival. Oral cavity: clear, Trachea midline. Breathing/Chest: Respiratory pattern: regular, Respiratory effort: spontaneous, unlabored, Breath sounds: clear, bilaterally. Chest inspection: symmetrical rise and fall of the chest. Circulation: Heart tones present. Skin color: pink, Skin temperature: warm. Disability Alert. Exposure/Environment: All clothing and personal items were removed. Forensic evidence collection is not deemed to be indicated at this time. Items placed in patient belonging bag. There is no evidence of uncontrolled external bleeding. Obvious injury(ies) are noted at this time: small laceration noted to the bridge of the nose. 21:25 Reassessment Airway Airway Patent Oxygen No O2 Oral cavity Clear Trachea Midline jd3 Breathing/Chest Respiratory pattern Regular Respiratory effort Spontaneous Chest inspection Symmetrical Circulation Pulses Palpable Color Mcmillin Temperature Warm Disability Alert. Secondary Survey: 20:26 HEENT: No deficits noted. Gastrointestinal: Abdomen is soft, Palpation No deficit jd3 noted. : No signs and/or symptoms were reported regarding the genitourinary system. Musculoskeletal: Circulation, motion, and sensation intact. Range of motion: intact in all extremities. Assessment: 20:14 General: Appears in no apparent distress. uncomfortable, Behavior is calm, cooperative. jd3 Pain: Complains of pain in head Quality of pain is described as aching. Neuro: Level of Consciousness is awake, alert, obeys commands, Oriented to person, situation. EENT: small laceration noted to the bridge of the nose. no bleeding noted. Cardiovascular: Heart tones S1 S2 present Capillary refill < 3 seconds Patient's skin is warm and dry. Respiratory: Airway is patent Respiratory effort is even, unlabored, Respiratory pattern is regular, symmetrical, Breath sounds are clear bilaterally. Denies cough, shortness of breath. GI: No signs and/or symptoms were reported involving the gastrointestinal system. Abdomen is round non-distended, Abd is soft and non tender X 4 quads. : No signs and/or symptoms were reported regarding the genitourinary system. Derm: Skin is intact, Skin is dry, Skin is normal, Skin temperature is warm Rash noted that is red, on right side of head. Musculoskeletal: Circulation, motion, and sensation intact. Range of motion: intact in all extremities. 22:00 Reassessment: No changes from previously documented assessment. Patient and/or family jd3 updated on plan of care and expected duration. Pain level reassessed. wounds dressing preformed to abrasion and small laceration noted to face and nose. 23:44 Reassessment: Patient appears in no apparent distress at this time. No changes from jd3 previously documented assessment. Patient and/or family updated on plan of care and expected duration. Pain level reassessed. 23:46 Reassessment: Kenji Romero [id number]. ea Vital Signs: 20:26 BP 177 / 69; Pulse 72; Resp 16 S; Temp 98.3(TE); Pulse Ox 98.3% on R/A; Weight 63.5 kg jd3 (R); Height 5 ft. 3 in. (160.02 cm) (R); Pain 6/10; 23:43 BP 173 / 50; Pulse 70; Resp 17 S; Pulse Ox 98% on R/A; jd3 20:26 Body Mass Index 24.80 (63.50 kg, 160.02 cm) jd3 Eduardo Coma Score: 20:26 Eye Response: spontaneous(4). Verbal Response: confused(4). Motor Response: obeys jd3 commands(6). Total: 14. 23:43 Eye Response: spontaneous(4). Verbal Response: confused(4). Motor Response: obeys jd3 commands(6). Total: 14. Trauma Score (Adult): 20:26 Eye Response: spontaneous(1); Verbal Response: confused(1); Motor Response: obeys jd3 commands(2); Systolic BP: > 89 mm Hg(4); Respiratory Rate: 10 to 29 per min(4); Eduardo Score: 14; Trauma Score: 12 23:43 Eye Response: spontaneous(1); Verbal Response: confused(1); Motor Response: obeys jd3 commands(2); Systolic BP: > 89 mm Hg(4); Respiratory Rate: 10 to 29 per min(4); Eduardo Score: 14; Trauma Score: 12 ED Course: 19:59 Patient arrived in ED. ds1 20:00 Charles Salinas MD is Attending Physician. stefani 20:12 Christo Fraire RN is Primary Nurse. jd3 20:22 Triage completed. jd3 20:27 Patient has correct armband on for positive identification. Placed in gown. Bed in low jd3 position. Call light in reach. Side rails up X2. caterer's aide on. Pulse ox on. NIBP on. 20:28 Arm band placed on. jd3 20:28 Patient maintains SpO2 saturation greater than 95% on room air. jd3 20:28 Thermoregulation: warm blanket given to patient. jd3 20:50 Inserted saline lock: 22 gauge in left forearm, using aseptic technique. dh4 22:24 Nikolai Carrizales is Hospitalizing Provider. stefani 22:27 Wilmer Wilkinson MD is Hospitalizing Provider. stefani 03/21 00:20 No provider procedures requiring assistance completed. IV discontinued, intact, jd3 bleeding controlled, No redness/swelling at site. Pressure dressing applied. Administered Medications: 03/20 21:31 Drug: Neosporin Ointment 1 application Route: Topical; Site: wound; jd3 21:31 Drug: NS 0.9% 500 ml Route: IV; Rate: bolus; Site: left antecubital; jd3 23:00 Follow up: Response: No adverse reaction; IV Status: Completed infusion ea 21:31 Drug: Ancef 1 grams Route: IVPB; Site: left antecubital; jd3 23:00 Follow up: Response: No adverse reaction; IV Status: Completed infusion ea Intake: 03/21 00:21 PO: 0ml; Total: 0ml. jd3 Output: 00:21 Urine: 0ml; Total: 0ml. jd3 Outcome: 03/20 22:27 Decision to Hospitalize by Provider. stefani 03/21 00:03 Discharge ordered by . stefani 00:19 Patient left the ED. ea 00:20 Discharged to home via wheelchair, with family. jd3 00:20 Condition: stable 00:20 Discharge instructions given to patient, family, Instructed on discharge instructions, follow up and referral plans. medication usage, Demonstrated understanding of instructions, follow-up care, medications. 00:21 Patient's length of stay in the Emergency Department was greater than 2 hours. waiting jd3 for results.Patient's length of stay extended due to Signatures: Charles Salinas MD MD cha Sanford, Demi ds1 Jhoana Short, Christo Haynes RN, ea, RN RN jd3 Huhn, Donald 4 Corrections: (The following items were deleted from the chart) 06:40 03/20 23:44 Reassessment: Patient appears in no apparent distress at this time. No jd3 changes from previously documented assessment. Patient and/or family updated on plan of care and expected duration. Pain level reassessed. jd3 03/21 06:40 03/20 22:00 Reassessment: No changes from previously documented assessment. Patient jd3 and/or family updated on plan of care and expected duration. Pain level reassessed. wounds dressing preformed to abrasion and small laceration noted to face and nose. jd3
--- NOTE | 2020-03-21 10:29 | EDPHYS ---
Physician Documentation [facility] Name: Alessandra Mendes Age: 89 yrs Sex: Female : 1930 Arrival Date: 03/20/2020 Time: 19:59 Bed 13 Private MD: ED Physician Charles Salinas HPI: 03/20 20:39 This 89 yrs old Female presents to ER via EMS with complaints of Fall Injury. stefani 20:39 Details of fall: The patient fell from an upright position, while walking. Onset: The stefani symptoms/episode began/occurred just prior to arrival. Associated injuries: The patient sustained injury to the head, forehead, right eye, right cheek and nose, abrasion, contusion, deformity, hematoma, painful injury. Severity of symptoms: At their worst the symptoms were mild, in the emergency department the symptoms are unchanged. The patient has not experienced similar symptoms in the past. Historical: - Allergies: 20:13 PENICILLINS; jd3 - Home Meds: 20:13 hypertension medication [Active]; jd3 - PMHx: 20:13 Hypertension; Alzheimers; jd3 - PSHx: 20:13 Tubal ligation; Tonsillectomy; Appendectomy; jd3 - Immunization history:: Adult Immunizations unknown, Last tetanus immunization: unknown. - Social history:: Smoking status: Patient denies any tobacco usage or history of. - Family history:: not pertinent. ROS: 20:39 Constitutional: Negative for fever, chills, and weight loss, Eyes: Negative for injury, stefani pain, redness, and discharge, Neck: Negative for injury, pain, and swelling, Cardiovascular: Negative for chest pain, palpitations, and edema, Respiratory: Negative for shortness of breath, cough, wheezing, and pleuritic chest pain, Abdomen/GI: Negative for abdominal pain, nausea, vomiting, diarrhea, and constipation, Back: Negative for injury and pain, : Negative for injury, bleeding, discharge, and swelling, MS/Extremity: Negative for injury and deformity, Skin: Negative for injury, rash, and discoloration, Neuro: Negative for headache, weakness, numbness, tingling, and seizure, Psych: Negative for depression, anxiety, suicide ideation, homicidal ideation, and hallucinations, Allergy/Immunology: Negative for hives, rash, and allergies, Endocrine: Negative for neck swelling, polydipsia, polyuria, polyphagia, and marked weight changes, Hematologic/Lymphatic: Negative for swollen nodes, abnormal bleeding, and unusual bruising. 20:39 ENT: Positive for injury or acute deformity, abrasion, contusion, nose bleed. Exam: 20:39 Constitutional: This is a well developed, well nourished patient who is awake, alert, stefani and in no acute distress. Eyes: Pupils equal round and reactive to light, extra-ocular motions intact. Lids and lashes normal. Conjunctiva and sclera are non-icteric and not injected. Cornea within normal limits. Periorbital areas with no swelling, redness, or edema. Neck: Trachea midline, no thyromegaly or masses palpated, and no cervical lymphadenopathy. Supple, full range of motion without nuchal rigidity, or vertebral point tenderness. No Meningismus. Chest/axilla: Normal chest wall appearance and motion. Nontender with no deformity. No lesions are appreciated. Cardiovascular: Regular rate and rhythm with a normal S1 and S2. No gallops, murmurs, or rubs. Normal PMI, no JVD. No pulse deficits. Respiratory: Lungs have equal breath sounds bilaterally, clear to auscultation and percussion. No rales, rhonchi or wheezes noted. No increased work of breathing, no retractions or nasal flaring. Abdomen/GI: Soft, non-tender, with normal bowel sounds. No distension or tympany. No guarding or rebound. No evidence of tenderness throughout. Back: No spinal tenderness. No costovertebral tenderness. Full range of motion. Skin: Warm, dry with normal turgor. Normal color with no rashes, no lesions, and no evidence of cellulitis. 20:39 Head/face: Noted is abrasion(s), contusion, ecchymosis, erythema, a laceration(s), that is superficial, .25 cm(s), swelling. 23:53 ECG was reviewed by the Attending Physician. [facility] Vital Signs: 20:26 BP 177 / 69; Pulse 72; Resp 16 S; Temp 98.3(TE); Pulse Ox 98.3% on R/A; Weight 63.5 kg jd3 (R); Height 5 ft. 3 in. (160.02 cm) (R); Pain 6/10; 23:43 BP 173 / 50; Pulse 70; Resp 17 S; Pulse Ox 98% on R/A; jd3 20:26 Body Mass Index 24.80 (63.50 kg, 160.02 cm) jd3 Eduardo Coma Score: 20:26 Eye Response: spontaneous(4). Verbal Response: confused(4). Motor Response: obeys jd3 commands(6). Total: 14. 23:43 Eye Response: spontaneous(4). Verbal Response: confused(4). Motor Response: obeys jd3 commands(6). Total: 14. Trauma Score (Adult): 20:26 Eye Response: spontaneous(1); Verbal Response: confused(1); Motor Response: obeys jd3 commands(2); Systolic BP: > 89 mm Hg(4); Respiratory Rate: 10 to 29 per min(4); Eduardo Score: 14; Trauma Score: 12 23:43 Eye Response: spontaneous(1); Verbal Response: confused(1); Motor Response: obeys jd3 commands(2); Systolic BP: > 89 mm Hg(4); Respiratory Rate: 10 to 29 per min(4); Eduardo Score: 14; Trauma Score: 12 MDM: 20:00 Patient medically screened. stefani 20:42 Data reviewed: vital signs, nurses notes, lab test result(s), radiologic studies, CT stefani scan. 21:20 Differential diagnosis: abrasion, closed head injury, contusion, fracture, laceration. stefani Data interpreted: telemetry monitor: not applicable for this patient encounter. rate is 72 beats/min, rhythm is normal sinus rhythm, Pulse oximetry: on room air is 98 %. Counseling: I had a detailed discussion with the patient and/or guardian regarding: the historical points, exam findings, and any diagnostic results supporting the discharge/admit diagnosis, radiology results, the need for outpatient follow up, for definitive care. ED course: pt has dementia, lives alone, assures me she will be fine at home tonight. 22:36 ED course: pt altered, not capable of going home alone, no family in town, fall risk, stefani will obs to pcp , dr levi. 03/21 00:00 ED course: neighbor here , he is like step son, cares for the patient at night, wants stefani to take home and will follow up dr levi this week. 03/20 20:39 Order name: Wound Care; Complete Time: 20:59 [facility] 03/20 20:39 Order name: Ice pack; Complete Time: 20:59 [facility] 03/20 22:05 Order name: EKG - Nurse/Tech; Complete Time: 23:43 stfeani EC/23 23:53 Rate is 65 beats/min. Rhythm is regular. QRS [place] is Normal. [place] interval is normal. QRS stefani interval is normal. QT interval is normal. No Q waves. T waves are Normal. No ST changes noted. Clinical impression: Abnormal EKG without significant change. Interpreted by me. Reviewed by me. Administered Medications: 21: Drug: Neosporin Ointment 1 application Route: Topical; Site: wound; jd3 :31 Drug: NS 0.9% 500 ml Route: IV; Rate: bolus; Site: left antecubital; jd3 23:00 Follow up: Response: No adverse reaction; IV Status: Completed infusion ea : Drug: Ancef 1 grams Route: IVPB; Site: left antecubital; jd3 23:00 Follow up: Response: No adverse reaction; IV Status: Completed infusion ea Disposition: 03/21/20 00:03 Discharged to Home. Impression: Laceration without foreign body of other part of head - nose, Superficial injury of head, Contusion of other part of head - face, Hypo-osmolality and hyponatremia. - Condition is Stable. - Discharge Instructions: Head Injury, Adult, Hyponatremia, Facial Laceration, Facial Laceration, [id number], Hyponatremia, [id number], Head Injury, Adult, [id number]. - Prescriptions for Bactroban 2 % Topical Ointment - Apply to affected area 1 application by TOPICAL route every 12 hours; 30 gram. Keflex 500 mg Oral Capsule - take 1 capsule by ORAL route every 6 hours for 7 days; 28 capsule. - Medication Reconciliation Form, Thank You Letter, Antibiotic Education, Prescription Opioid Use form. - Follow up: Private Physician; When: 2 - 3 days; Reason: Recheck today's complaints, Continuance of care, Re-evaluation by your physician. - Problem is new. - Symptoms have improved. Signatures: Charles Salinas MD MD cha Lasagna, Tonya, RN RN tl1 Jhoana Short RN Christo Haynes ea, RN RN jd3 Corrections: (The following items were deleted from the chart) 22: 22:27 Hospitalization Ordered by Nikolai Carrizales for Observation. Preliminary diagnosis stefani is Fall due to bumping against object; Hypo-osmolality and hyponatremia; Fracture of nasal bones; Dementia in other diseases classified elsewhere. Bed requested for Telemetry/MedSurg (observation). Status is Observation. Condition is Fair. Problem is new. Symptoms are unchanged. [facility] 03/21 00:01 03/20 22:27 03/20/2020 22:27 Hospitalization Ordered by Wilmer Levi MD for tl1 Observation. Preliminary diagnosis is Fall due to bumping against object; Hypo-osmolality and hyponatremia; Fracture of nasal bones; Dementia in other diseases classified elsewhere. Bed requested for Telemetry/MedSurg (observation). Status is Observation. Condition is Fair. Problem is new. Symptoms are unchanged. [facility] 03/21 00:02 00:01 03/20/2020 22:27 Hospitalization Ordered by Wilmer Levi MD for Observation. stefani Preliminary diagnosis is Fall due to bumping against object; Hypo-osmolality and hyponatremia; Fracture of nasal bones; Dementia in other diseases classified elsewhere. Bed requested for Telemetry/MedSurg (observation). Status is Observation. Condition is Fair. Problem is new. Symptoms are unchanged. tl1 00:03 00:03 03/21/2020 00:03 Discharged to Home. Impression: Laceration without foreign body stefani of other part of head - nose; Superficial injury of head; Contusion of other part of head - face. Condition is Stable. Prescriptions for Keflex 500 mg Oral Capsule - take 1 capsule by ORAL route every 6 hours for 7 days; 28 capsule. and Forms are Medication Reconciliation Form, Thank You Letter, Antibiotic Education, Prescription Opioid Use. Follow up: Private Physician; When: 2 - 3 days; Reason: Recheck today's complaints, Continuance of care, Re-evaluation by your physician. Problem is new. Symptoms have improved. [facility] 00:19 00:03 03/21/2020 00:03 Discharged to Home. Impression: Laceration without foreign body ea of other part of head - nose; Superficial injury of head; Contusion of other part of head - face; Hypo-osmolality and hyponatremia. Condition is Stable. Discharge Instructions: Head Injury, Adult, Facial Laceration, Facial Laceration, [id number], Head Injury, Adult, [id number]. Prescriptions for Keflex 500 mg Oral Capsule - take 1 capsule by ORAL route every 6 hours for 7 days; 28 capsule. and Forms are Medication Reconciliation Form, Thank You Letter, Antibiotic Education, Prescription Opioid Use. Follow up: Private Physician; When: 2 - 3 days; Reason: Recheck today's complaints, Continuance of care, Re-evaluation by your physician. Problem is new. Symptoms have improved. stefani
--- NOTE | 2020-03-21 12:23 | EKG ---
Test Date: 2020-03-20 Test Time: 23:24:51 [place] Developer: RAFI MEASUREMENT RESULTS: Intervals: Rate: 65 HI: 202 QRSD: 80 QT: 432 QTc: 449 [place]: P: 47 HI: 202 QRS: -28 T: 117 INTERPRETIVE STATEMENTS: Sinus rhythm with frequent premature ventricular complexes Left ventricular hypertrophy with repolarization abnormality Abnormal ECG Compared to ECG 03/20/2020 23:23:55 Early repolarization now present ST (T wave) deviation no longer present Possible ischemia no longer present Electronically Signed On 03-21-20 12:22:15 CDT by Junior Joy
--- NOTE | 2020-03-21 12:23 | EKG ---
Test Date: 2020-03-20 Test Time: 23:23:55 Tray Drier: RAFI MEASUREMENT RESULTS: Intervals: Rate: 65 NC: 188 QRSD: 78 QT: 420 QTc: 436 [place]: P: 75 NC: 188 QRS: -23 T: 110 INTERPRETIVE STATEMENTS: Poor data quality, interpretation may be adversely affected Sinus rhythm with frequent premature ventricular complexes Minimal voltage criteria for LVH, may be normal variant ST & T wave abnormality, consider lateral ischemia Abnormal ECG Compared to ECG 09/14/2019 13:34:21 Ventricular premature complex(es) now present Possible ischemia now present ST (T wave) deviation still present Electronically Signed On 03-21-20 12:22:16 CDT by Junior Joy
[2020-03-21 12:54] VITALS: TEMP 98.3
[2020-03-21 12:55] VITALS: BP 173/50; O2SAT 98
--- NOTE | 2020-03-21 13:28 | RAD REPORT ---
EXAM DESCRIPTION: Facial Bones W/ Mpr CLINICAL HISTORY: 89 years Female FALL COMPARISON: None. TECHNIQUE: Contiguous axial images obtained through the maxillofacial region without IV contrast. Re formatted images obtained. This exam was performed according to our department optimization program which includes automated exp osure control, adjustment of the mA and/or kv according to patient size and/or use of iterative recon struction technique. FINDINGS: Positioning significantly limits detail. There are comminuted acute appearing fractures of the right nasal bone, mildly depressed, with prob able mildly depressed fracture of the left nasal bone of indeterminate acuity. There is ectopic gas in the subcutaneous soft tissues tissues overlying the right nasal bone fractures. There is anterior soft tissue swelling with preseptal soft tissue swelling. No post septal abnormality is seen. Small amount of fluid is in the sphenoid sinus suggesting acute paranasal sinusitis or less likely oc cult fracture. No other facial bone fractures are identified. IMPRESSION: Right nasal bone fractures appear acute. Left nasal bone fracture of indeterminate acuit y. Probable acute paranasal sinusitis. Electronically signed by: Azam Yanes 03/20/2020 10:04 PM CDT Due to temporary technical issues with the PACS/Fluency reporting system, reports are being signed by the in house radiologist without review as a courtesy to ensure prompt reporting. The interpreting r adiologist is fully responsible for the content of the report.
--- NOTE | 2020-03-21 13:29 | RAD REPORT ---
EXAM DESCRIPTION: GARRISON PIZANO CLINICAL HISTORY: FALL COMPARISON: None Available TECHNIQUE: Contiguous axial CT images of the head cervical spine were obtained. No intravenous contr ast was administered. Coronal and sagittal reconstructions were created from the axial data. This exam was performed according to our departmental dose-optimization program, which includes autom ated exposure control, adjustment of the mA and/or kV according to patient size and/or use of iterati ve reconstruction technique. FINDINGS: Poorly defined foci of decreased attenuation do not exert significant mass effect on surro unding structures and are likely sequela of prior insult, most likely on the basis of small vessel di sease. There is no evidence of acute mass, mass effect, midline shift or hemorrhage. The ventricles and extr a-axial CSF spaces are unremarkable. The brain parenchyma appears normal for the patient's age. No ac [place] abnormalities of the bones is seen. There are degenerative changes of the cervical spine with grade 1 anterolisthesis of C3 on C4 and of C4 on C5 and marked height loss at C5-6 and C6-7 intervertebral discs, with reversal of the normal lo rdotic curvature from C2 through C6. IMPRESSION: No acute intracranial abnormality. No acute cervical spine abnormality. Electronically signed by: Azam Yanes 03/20/2020 9:55 PM CDT Due to temporary technical issues with the PACS/Fluency reporting system, reports are being signed by the in house radiologist without review as a courtesy to ensure prompt reporting. The interpreting r adiologist is fully responsible for the content of the report.
== END 2020-03-21 00:19 | disposition home or self-care (01) ==
LOC: ER 19:51 → UNDOADMOB 23:01 → ERHOLD 23:01 → ER 03-21 00:19
DX: S01.21XA Laceration without foreign body of nose, initial encounter (principal); W19.XXXA Unspecified fall, initial encounter; Y93.01 Activity, walking, marching and hiking; Y92.9 Unspecified place or not applicable; E87.1 Hypo-osmolality and hyponatremia; I10 Essential (primary) hypertension; G30.9 Alzheimer's disease, unspecified; F02.80 Dementia in other diseases classified elsewhere, unspecified severity, without behavioral disturbance, psychotic disturbance, mood disturbance, and anxiety; Z88.0 Allergy status to penicillin
CPT/HCPCS: 96365; 93005 ×2; 85025; 36415; 80053; 70450; 72125; 70486; 76377; 71045; 99285; J7040; J0690; G0378 ×2